=== PATIENT | male | born 1965 | race Caucasian/White ===

== ENCOUNTER → 2016-12-14 | Outpatient (CLI) | payer OTHER ==
[2016-12-14 08:19] LABS: Basophils # (auto) 0 uL; Basophils % (auto) 0.5 % (0.0-2.0); Eosinophils # (auto) 0.2 uL; Hematocrit 48.6 % (41.0-53.0); Hemoglobin 16.7 g/dL (13.5-17.5); Lymphocytes % (auto) 26.6 % (10.0-50.0); Mean Corpuscular Hemoglobin 32.3 pg (28.0-32.0); Mean Corpuscular Hgb Conc. 34.3 g/dL (32.0-36.0); Mean Corpuscular Volume 93.9 fL (80.0-100.0); Mean Platelet Volume 9.3 fL (7.4-10.4); Monocytes # (auto) 0.6 uL; Monocytes % (auto) 8.2 % (0.0-12.0); Neutrophils # (auto) 4.6 uL; Neutrophils % (auto) 61.7 % (37.0-80.0); Platelet Count (auto) 267 10^3/uL (140-450); Red Cell Distribution Width 14.2 % (11.6-16.0); White Blood Cell 7.4 10^3/uL (4.4-10.8)
[2016-12-14 09:09] LABS: Albumin 3.7 g/dL (3.4-5.0); BUN/Creatinine Ratio 18.4; Bilirubin, Total 0.4 mg/dL (0.2-1.0); Calcium 8.4 mg/dL (8.5-10.1); Potassium 4.3 mmol/L (3.5-5.1); Total Protein 6.8 g/dL (6.4-8.2)
== END | disposition home or self-care (01) ==
LOC: LAB 08:01
PROVIDERS: ATTEND Internal Medicine
DX: Z00.00 Encounter for general adult medical examination without abnormal findings (principal); I10 Essential (primary) hypertension; E78.2 Mixed hyperlipidemia; E55.9 Vitamin D deficiency, unspecified
CPT/HCPCS: 36415; 80053; 80061; 82306; 85025

== ENCOUNTER 2024-08-16 14:51 | Emergency (ER) | payer OTHER ==
[~2024-08-16] VITALS: Ht 180.3 cm; Wt 98.1 kg
--- NOTE | 2024-08-16 16:20 | DVH ---
CLINICAL INDICATION: injury TECHNIQUE: XY L HAND 3V XRAY Comparison: None FINDINGS/IMPRESSION: : Limited examination secondary to patient head positioning. Comminuted and displaced fracture of the distal aspect of the 2nd proximal phalanx with probable intr a-articular extension. There is persistent flexion at the 2nd proximal interphalangeal joint suggest ing possible underlying ligamentous / tendinous injury. Clinical correlation advised. No definite appreciable radiopaque foreign body. Diffuse soft-tissue swelling around the 2nd proximal interphalangeal joint.
--- NOTE | 2024-08-16 16:32 | ED.PDOC ---
Michael. trauma (HPI) HPI Comments 59 y.o male with PMHx of DM, HTN and hyperlipidemia, presents to the ED for an evaluation of a laceration to left hand. Patient reports using a saw when it slipped and landed on his left hand. Patient presents with left index/2nd proximal interphalangeal joint joint capsule rupture. Middle/3rd digit obvious intrusion into distal phalangeal . [place] skin. Patient has limited ROM to both digits. He denies any lightheadedness, nausea, vomiting. Patient is up to date with his tetanus vaccine. Chief Complaint: Upper Extremity Time Seen by MD: 15:41 Primary Care Provider: AFSANEH Reviewed notes: Nurses Notes, Medications, Allergies Allergies: Coded Allergies: NO KNOWN ALLERGIES (Unverified , 03/06/16) Information Source: Patient Mode of Arrival: Ambulatory Severity: Moderate Timing: Hours Duration: Since onset Location of laceration: Extremities Mechanism: Blunt trauma Associated signs and symtoms: None Past Medical History PAST MEDICAL HISTORY: DM, High Lipids, HTN Surgical History: Denies all surgeries Family History Family History: Unknown Social History Smoker: Non-Smoker Alcohol: Denies ETOH Use Drugs: Denies Drug Use Lives In: Home Constitutional: denies: chills, diaphoresis, fatigue, fever, malaise, sweats, weakness, others EENTM: denies: blurred vision, double vision, ear bleeding, ear discharge, ear drainage, ear pain, ear ringing, eye pain, eye redness, hearing loss, mouth pain, mouth swelling, nasal discharge, nose bleeding, nose congestion, nose pain, photophobia, tearing, throat pain, throat swelling, voice changes, others Respiratory: denies: cough, hemoptysis, orthopnea, SOB at rest, shortness of breath, SOB with excertion, stridor, wheezing, others Cardiovascular: denies: chest pain, dizzy spells, diaphoresis, Dyspnea on exertion, edema, irregular heart beat, left arm pain, lightheadedness, palpitations, PND, syncope, others Gastrointestinal: denies: abdomen distended, abdominal pain, blood streaked bowels, constipated, diarrhea, dysphagia, difficulty swallowing, hematemesis, melena, nausea, poor appetite, poor fluid intake, rectal bleeding, rectal pain, vomiting, others Genitourinary: denies: burning, dysuria, flank pain, frequency, hematuria, incontinence, penile discharge, penile sore, pain, testicle pain, testicle swelling, urgency, others Neurological: denies: dizziness, fainting, headache, left sided numbness, left sided weakness, numbness, paresthesia, pre-existing deficit, right sided numbness, right sided weakness, seizure, speech problems, tingling, tremors, weakness, others Musculoskeletal: denies: back pain, gout, joint pain, joint swelling, muscle pain, muscle stiffness, neck pain, others Integumetry: reports: laceration (left hand 2nd and 3rd digit ); denies: bruises, change in color, change in hair/nails, dryness, lesions, lumps, rash, wounds, others Allergic/Immunocompromised: denies: Difficulty Healing, Frequent Infections, Hives, Itching, others Hematologic/Lymphatic: denies: anemia, blood clots, easy bleeding, easy bruising, swollen glands, others Endocrine: denies: excessive hunger, excessive sweating, excessive thirst, excessive urination, flushing, intolerance to cold, intolerance to heat, unexplained weight gain, unexplained weight loss, others Psychiatric: denies: anxiety, bipolar disorder, depression, hopeless, panic disorder, schizophrenia, sleepless, suicidal, others All Other Systems: Reviewed and Negative Physical Exam General Appearance: No Apparent Distress, Normal HEENT: Normal ENT Inspection, Pharynx Normal, TMs Normal Neck: Full Range of Motion, Non-Tender, Normal, Normal Inspection Respiratory: Chest Non-Tender, Lungs Clear, No Accessory Muscle Use, No Respiratory Distress, Normal Breath Sounds Cardiovascular: No Edema, No JVD, No Murmur, No Gallop, Normal Peripheral Pulses, Regular Rate/Rhythm Breast Exam: Deferred Gastrointestinal: No Organomegaly, Non Tender, No Pulsatile Mass, Normal Bowel Sounds, Soft Genitalia: Deferred Pelvic: Deferred Rectal: Deferred Extremities: No calf tenderness, Normal capillary refill, Normal inspection, Normal range of motion, Non-tender, No pedal edema Musculoskeletal : Apperance: Normal Neurologic: Alert, medication care manager II-XII nml as Tested, No Motor Deficits, Normal Affect, Normal Mood, No Sensory Deficits Cerebellar Function: Normal Reflexes: Normal Skin: Lacerations ( left index/2nd proximal interphalangeal joint joint capsule rupture. Middle/3rd digit obvious intrusion into distal phalangeal . [place] skin ) Lymphatic: No Adenopathy Was a procedure done? Was a procedure done?: Yes Sedation Sedation?: No Informed consent obtained: No Other Procedure Procedure volar short arm hand splint, with distal skin pink Differential Diagnosis Multiple Trauma: Vascular Injury, Laceration X-Ray, Labs, Meds, VS Vital Signs Date Time Temp Pulse Resp B/P (MAP) Pulse Ox O2 Delivery O2 Flow Rate FiO2 08/16/24 15:40 98.1 54 16 146/83 (104) 99 [place] [id number] [facility] [id number] Ph: [phone] DIAGNOSTIC IMAGING Diagnostic Imaging Report : [id number] Signed PATIENT: JOSHUA MILES ACCT: [id number] UNIT: [id number] : 1965 LOC: ER ROOM / BED: / AGE / SEX: 59 / M ADM STATUS: REG ER SERVICE 1550 ORDERING PHYSICIAN: MADELINE FORREST MD PROCEDURE(s): LHAN - L HAND 3V XRAY REASON: injury ORDER NUMBER(s): [id number], ACCESSION NUMBER(s): [id number] CLINICAL INDICATION: injury TECHNIQUE: XY L HAND 3V XRAY Comparison: None FINDINGS/IMPRESSION: : Limited examination secondary to patient head positioning. Comminuted and displaced fracture of the distal aspect of the 2nd proximal phalanx with probable intra-articular extension. There is persistent flexion at the 2nd proximal interphalangeal joint suggesting possible underlying ligamentous / tendinous injury. Clinical correlation advised. No definite appreciable radiopaque foreign body. Diffuse soft-tissue swelling around the 2nd proximal interphalangeal joint. ATED BY: J CARLOS MORA MD DICTATED DATE/TIME: 08/16/241615 SIGNED BY: J CARLOS MOAR MD SIGNED DATE/TIME: 08/16/241615 CC: Time of 1ST Reevaluation: 16:26 Reevaluation 1ST: Unchanged Time of 2ND Reevaluation: 16:38 Reevaluation 2ND: Unchanged Patient Education/Counseling: Diagnosis, Treatment, Prognosis, Need For Follow Up Family Education/Counseling: No Family Present Additional Information I reviewed the following notes from patient's past medical encounters: None recently The following tests were ordered, and results were reviewed by me: Antibiotics, Fentanyl Additional Information was gathered from interviewing the following independent historians: None I reviewed and agreed with the following test results read by other providers: Left hand X rays I discussed treatment and results with medical personnel Dr. Arce from [facility] did not accept transfer, will seek other facilities for hand surgery. i spoke to Dr Preciado, at [facility], who accepted the transfer Departure 1 Departure Time of Disposition: 16:38 Impression: Primary Impression: Finger laceration involving tendon Qualified Codes: S61.219A - Laceration without foreign body of unspecified finger without damage to nail, initial encounter Additional Impressions: Finger laceration with complication Qualified Codes: S61.219A - Laceration without foreign body of unspecified finger without damage to nail, initial encounter Open fracture Disposition: 02 SHORT TERM HOSPITAL Condition: Stable Discharged With: Self Critical Care Note Critical Care Time?: Yes (45 min-critical care time only) Critical care comment: Due to concerns for patients condition deteriorating, the care required my highest level of attention and readiness to intervene. I assessed the patient, reviewed the medical records, ordered the appropriate tests and treatments, then reassessed for results and responsiveness. I communicated with medical personnel and consultants and formulated a plan of care. Total critical care time excludes any procedures Stability Stability form required: No I personally scribed for MADELINE FORREST MD [facility] on 08/16/24 at 16:32. Electronically submitted by Dulce Branham ([employer]). I personally scribed for MADELINE FORREST MD ([facility] on 08/16/24 at 16:33. Electronically submitted by Dulce Branham ([employer]). MADELINE FORREST MD Aug 16, 2024 16:32
[2024-08-16] MEDS: fentaNYL CITRATE 100 MCG/2 ML VL IV ONE ×2 (21:44→21:57)
[2024-08-16] MEDS: cefTRIAXone 1GM/50ML D5W 50 ML IV ONE ×2 (21:45→21:57)
[2024-08-16 23:09] VITALS: BP 131/70; PULSE 80; RESP 18; TEMP 98.3; O2SAT 97
== END 2024-08-16 21:18 | disposition short-term general hospital (02) ==
LOC: ER 14:51
DX: S66.521A Laceration of intrinsic muscle, fascia and tendon of left index finger at wrist and hand level, initial encounter (principal); S62.641B Nondisplaced fracture of proximal phalanx of left index finger, initial encounter for open fracture; E11.9 Type 2 diabetes mellitus without complications; E78.5 Hyperlipidemia, unspecified; I10 Essential (primary) hypertension; W01.0XXA Fall on same level from slipping, tripping and stumbling without subsequent striking against object, initial encounter; Y93.89 Activity, other specified; Y92.89 Other specified places as the place of occurrence of the external cause; Y99.8 Other external cause status
CPT/HCPCS: 29125; 73130; 96365; 96375; 99285; J0696; J3010